=== PATIENT | female | born 1990 | race Two or more races ===

== ENCOUNTER 2019-08-31 11:06 | Observation (INO) | payer OTHER ==
[2019-08-31] MEDS ORDERED: URSO300C9 PO (12:17)
[2019-08-31] MEDS ORDERED: PREN-96 PO (12:18)
== END 2019-08-31 12:45 | disposition home or self-care (01) | DRG 833 ==
LOC: LDRP 11:06
PROVIDERS: ADMIT Obstetrics & Gynecology; ATTEND Obstetrics & Gynecology
DX: O26.613 Liver and biliary tract disorders in pregnancy, third trimester (principal); Z3A.35 35 weeks gestation of pregnancy
CPT/HCPCS: 59025; 76818; 81002; G0378

== ENCOUNTER 2019-09-04 09:05 | Observation (INO) | payer OTHER ==
[~2019-09-04 09:05] MED LIST: PREN-96 PO; URSO300C9 PO
== END 2019-09-04 10:40 | disposition home or self-care (01) | DRG 833 ==
LOC: LDRP 09:05
PROVIDERS: ADMIT Obstetrics & Gynecology; ATTEND Obstetrics & Gynecology
DX: O26.613 Liver and biliary tract disorders in pregnancy, third trimester (principal); Z3A.36 36 weeks gestation of pregnancy
CPT/HCPCS: 59025; 76818; 81002; G0378

== ENCOUNTER 2019-09-07 10:58 | Observation (INO) | payer OTHER ==
[~2019-09-07] VITALS: Ht 170.2 cm; Wt 68.9 kg
[2019-09-07] MEDS: BETAMETHASONE ACET (6MG/ML) 5ML VIAL IM ONE (11:56)
== END 2019-09-07 12:12 | disposition home or self-care (01) | DRG 831 ==
LOC: LDRP 10:58
PROVIDERS: ADMIT Obstetrics & Gynecology; ATTEND Obstetrics & Gynecology
DX: O26.613 Liver and biliary tract disorders in pregnancy, third trimester (principal); K83.1 Obstruction of bile duct; Z3A.36 36 weeks gestation of pregnancy
CPT/HCPCS: 59025; 76818; 81002; 96372; G0378; J0702

== ENCOUNTER 2019-09-08 16:32 | Observation (INO) | payer OTHER ==
[~2019-09-08] VITALS: Ht 170.2 cm; Wt 68.9 kg
[2019-09-08] MEDS ORDERED: BETAMETHASONE ACET (6MG/ML) 5ML VIAL IM ONE (17:00)
== END 2019-09-08 17:16 | disposition home or self-care (01) | DRG 831 ==
LOC: LDRP 16:32
PROVIDERS: ADMIT Obstetrics & Gynecology; ATTEND Obstetrics & Gynecology
DX: O26.613 Liver and biliary tract disorders in pregnancy, third trimester (principal); K83.1 Obstruction of bile duct; Z3A.36 36 weeks gestation of pregnancy
CPT/HCPCS: 59025; 81002; 96372; G0378

== ENCOUNTER 2019-09-11 13:20 | Observation (INO) | payer OTHER | END 2019-09-11 16:00 | disposition home or self-care (01) | DRG 951 | LOC: LDRP 13:20 | PROVIDERS: ADMIT Obstetrics & Gynecology; ATTEND Obstetrics & Gynecology | DX: Z34.83 Encounter for supervision of other normal pregnancy, third trimester (principal); Z3A.37 37 weeks gestation of pregnancy | CPT/HCPCS: 59025; 76818; 81002; G0378 ==

== ENCOUNTER 2019-09-14 01:03 | Inpatient (IN) | payer OTHER ==
[~2019-09-14] VITALS: Ht 170.2 cm; Wt 72.6 kg
[2019-09-14] MEDS ORDERED: LACT. RINGERS/OXYTOCIN 20UNITS 1,000 ML IV SCH ×3 (02:21→22:08)
[2019-09-14] MEDS ORDERED: BUTORPHANOL TARTRATE 2 MG/1 ML VIAL IV PRN (02:30)
[2019-09-14] MEDS ORDERED: DERMOPLAST 60ML BOTTLE TOP PRN (02:30)
[2019-09-14] MEDS ORDERED: WITCH HAZEL-GLYCERIN PAD TOP PRN (02:30)
[2019-09-14] MEDS ORDERED: CARBOPROST TROMETHAMINE 250 MCG/1ML VIAL IM PRN (02:30)
[2019-09-14] MEDS ORDERED: LIDOCAINE 2%HCL (LOCAL ANESTH.) INJ 20ML MDV ID ONE (02:30)
[2019-09-14] MEDS ORDERED: METHYLERGONOVINE MALEATE 0.2 MG/ML AMP IM PRN (02:30)
[2019-09-14] MEDS ORDERED: PHISODERM TOP SOLN 240ML BTL TOP PRN (02:30)
[2019-09-14 03:09] LABS: Basophils # (auto) 0 uL; Basophils % (auto) 0.1 % (0.0-2.0); Eosinophils # (auto) 0 uL; Eosinophils % (auto) 0.4 % (0.0-7.0); Hematocrit 38.9 % (36.0-46.0); Hemoglobin 13.2 g/dL (12.2-16.2); Lymphocytes # (auto) 1.4 uL; Lymphocytes % (auto) 12.7 % (10.0-50.0); Mean Corpuscular Hemoglobin 30.2 pg (28.0-32.0); Mean Corpuscular Hgb Conc. 33.8 g/dL (32.0-36.0); Mean Corpuscular Volume 89.5 fL (80.0-100.0); Monocytes # (auto) 0.7 uL; Monocytes % (auto) 5.7 % (0.0-12.0); Neutrophils # (auto) 9.3 uL; Neutrophils % (auto) 81.1 % (37.0-80.0); Platelet Count (auto) 285 10^3/uL (140-450); Red Blood Cells 4.35 10^6/uL (4.0-5.20); Red Cell Distribution Width 13.7 % (11.8-14.3); White Blood Cell 11.4 10^3/uL (4.4-10.8)
[2019-09-14 03:27] LABS: INR 0.87 (0.9-1.15)
[2019-09-14 03:29] LABS: Albumin 2.7 g/dL (3.4-5.0); BUN/Creatinine Ratio 17.9; Calcium 9.6 mg/dL (8.5-10.1)
[2019-09-14 03:32] LABS: Bilirubin, Total 0.2 mg/dL (0.2-1.0); Total Protein 7.4 g/dL (6.4-8.2)
[2019-09-14] MEDS: LACTATED RINGER'S 1,000 ML IV SCH ×3 (06:48→16:09)
[2019-09-14 08:40] LABS: Urine Bacteria FEW /hpf (None Seen); Urine Blood 2+ /uL (Negative); Urine Specific Gravity 1.004 (1.001-1.035); Urine WBC 12 /hpf (0 - 5)
[2019-09-14] MEDS ORDERED: TERBUTALINE SULFATE 1 MG/ML 1ML VIAL SC PRN (14:45)
[2019-09-14] MEDS ORDERED: ceFAZolin 1GM/50ML 50 ML IV ONE (15:08)
[2019-09-14] MEDS: ceFAZolin 1GM/50ML 50 ML IV SCH ×2 (15:31→22:39)
[2019-09-14] MEDS ORDERED: ceFAZolin 1GM/50ML 50 ML IV SCH (16:00)
[2019-09-14] MEDS ORDERED: LACTATED RINGER'S 1,000 ML IV ONE (16:13)
[2019-09-14] MEDS ORDERED: LIDOCAINE HCL 2 %PF INJ 10ML AMP IJ ONE (16:15)
[2019-09-14] MEDS ORDERED: fentaNYL W ROPIVACAINE 150 ML EPI SCH (16:15)
[2019-09-14] MEDS ORDERED: ePHEDrine SULFATE 50 MG/ML AMP IV ONE (16:15)
[2019-09-14] MEDS ORDERED: NALOXONE HCL 0.4 MG/ML VIAL IV ONE (16:15)
[2019-09-14] MEDS ORDERED: fentaNYL CITRATE 100 MCG/2 ML VL IV ONE (16:15)
--- NOTE | 2019-09-14 20:45 | NUR ---
Teaching: Reviewed information in [facility] booklet with patient. Discussed benefits of and risks associated with not . Discussed different positions, proper latch, feeding cues, and baby-led . Provided information of medication side effects related to . All questions and concerns addressed at this time. Patient verbalized understanding of information.
[2019-09-14] MEDS ORDERED: ACETAMINOPHEN 325 MG TAB PO PRN (21:15)
[2019-09-14] MEDS ORDERED: AMMONIA 0.33 ML INHALANT IN ONE (22:16)
--- NOTE | 2019-09-14 22:30 | NUR ---
Ambulation: Patient OOB with standby assistance by RN. Patient ambulated to bathroom with steady gait. Patient able to void 900ml without difficulty. [facility] teaching provided with returned demonstration by patient. Clean gown provided and bed linen changed. Patient ambulated back to bed with steady gait and no distress noted.
[2019-09-14 22:57] VITALS: BP 134/72
[2019-09-15] MEDS ORDERED: RHO (D) IMMUNE GLOBULIN 300 MCG INJ IM ONE
[2019-09-15 03:08] VITALS: BP 119/69
[2019-09-15 06:06] LABS: RPR Non Reactive (Non Reactive)
[2019-09-15 07:00] VITALS: BP 112/75
[2019-09-15] MEDS: ceFAZolin 1GM/50ML 50 ML IV SCH (07:12)
--- NOTE | 2019-09-15 08:18 | NUR ---
Dr Alanis made rounds. Updated on pt status. Received orders to dc ancef.
[2019-09-15 11:00] VITALS: BP 117/88
[2019-09-15 14:52] VITALS: BP 116/64
[2019-09-15] MEDS: IBUPROFEN 600 MG TAB PO PRN (18:28)
[2019-09-15 18:37] VITALS: BP 111/77
[2019-09-15 22:59] VITALS: BP 116/71
[2019-09-16] MEDS ORDERED: INFLUENZA QUAD 2019-2020 0.5ml SYRG IM ONE (02:45)
[2019-09-16] MEDS ORDERED: TETANUS-DIPTH-ACEL PERTUSSIS 0.5ML SYRG IM ONE (02:45)
[2019-09-16] MEDS ORDERED: MEASLES, MUMPS & RUBELLA VAC(MMRII) 0.5ML SC ONE (02:45)
[2019-09-16 03:00] VITALS: BP 125/79
--- NOTE | 2019-09-16 03:35 | NUR ---
IV removal IV DC'd with clean sterile technique, catheter fully intact. Pressure dressing applied to site. Patient tolerated well.
[2019-09-16 07:30] VITALS: BP 120/76
[2019-09-16] MEDS: IBUPROFEN 600 MG TAB PO PRN (10:47)
[2019-09-16 10:50] VITALS: BP 120/81
--- NOTE | 2019-09-16 11:36 | NUR ---
Discharge: Discharge instructions given as ordered. Pt encouraged to follow up with [facility] as instructed. All questions and concerns addressed. Patient verbalized understanding. Medication reconciliation completed and copy given to patient. All required/requested vaccines given and copies of vaccinations given to patient. Patient encouraged to prepare to depart unit.
--- NOTE | 2019-09-16 12:50 | NUR ---
Discharge: ID bands matched and ID verification form signed and witnessed. One ID band was removed and placed in chart. Infant taken to vehicle, accompanied by staff, mother of baby, and family member along with all personal belongings. secured in rear-facing car seat by parent and verified by staff. No distress or adverse changes in status since initial assessment was noted at time of departure. Addendum: 09/16/19 at 1256 by Rufus Gonzalez RN wrong discharge note charted
--- NOTE | 2019-09-16 12:50 | NUR ---
Discharge: Patient taken to vehicle ambulatory with all personal belongings, accompanied by staff and family member. No distress noted at time of departure, no adverse changes in status since initial assessment.
== END 2019-09-16 12:50 | disposition home or self-care (01) | DRG 805 ==
LOC: LDRP 01:03 → NUR 02:20 → OBSVTOIN 02:20 → LDRP 02:21
PROVIDERS: ADMIT Obstetrics & Gynecology; ATTEND Obstetrics & Gynecology
PROC: 10E0XZZ Delivery of Products of Conception, External Approach (ICD-10-PCS; principal; 2019-09-14)
PROC: 0HQ9XZZ Repair Perineum Skin, External Approach (ICD-10-PCS; 2019-09-14)
PROC: 3E0234Z Introduction of Serum, Toxoid and Vaccine into Muscle, Percutaneous Approach (ICD-10-PCS; 2019-09-15)
DX: O42.92 Full-term premature rupture of membranes, unspecified as to length of time between rupture and onset of labor (principal); K83.1 Obstruction of bile duct; Z37.0 Single live birth; O26.62 Liver and biliary tract disorders in childbirth; Z3A.37 37 weeks gestation of pregnancy; O70.0 First degree perineal laceration during delivery; O75.89 Other specified complications of labor and delivery; Z67.20 Type B blood, Rh positive
CPT/HCPCS: 36415; 59025; 59409; 80053; 81001; 84112; 85025; 85610; 85730; 86592; 86850; 86900; 86901; 90384; 94760; 96365; 96366; 96372; 96374; G0378; J0690; J2590; J3010